=== PATIENT | female | born 1955 | race Caucasian/White ===

== ENCOUNTER 2016-05-13 14:03 | Emergency (ER) | payer MEDICAID ==
[2016-05-13] MEDS ORDERED: ASPIRIN 81 MG CHEW TAB ONE (14:26)
== END 2016-05-13 17:37 | disposition home or self-care (01) ==
LOC: ER 14:03
DX: R07.2 Precordial pain (principal); J20.9 Acute bronchitis, unspecified; Z79.899 Other long term (current) drug therapy; F17.210 Nicotine dependence, cigarettes, uncomplicated
CPT/HCPCS: 36415; 71010; 80053; 82550; 83735; 84484; 85025; 85610; 85730; 93005